=== PATIENT | female | born 1945 | race Hispanic/Latino ===

== ENCOUNTER 2017-06-29 17:46 | Emergency (ER) | payer OTHER | END 2017-06-29 19:34 | disposition home or self-care (01) | LOC: EDH 17:46 | DX: S50.12XA Contusion of left forearm, initial encounter (principal); S70.02XA Contusion of left hip, initial encounter; E11.9 Type 2 diabetes mellitus without complications; E78.5 Hyperlipidemia, unspecified; I10 Essential (primary) hypertension; Z86.73 Personal history of transient ischemic attack (TIA), and cerebral infarction without residual deficits; Z95.1 Presence of aortocoronary bypass graft; Z90.710 Acquired absence of both cervix and uterus; W07.XXXA Fall from chair, initial encounter; Y93.89 Activity, other specified; Y92.89 Other specified places as the place of occurrence of the external cause; Y99.8 Other external cause status | CPT/HCPCS: 99281 ==

== ENCOUNTER 2018-06-12 03:36 | Emergency (ER) | payer OTHER ==
[2018-06-12] MEDS ORDERED: LORAZEPAM 2 MG/ML 1 ML VIAL ONE (04:09)
[2018-06-12] MEDS ORDERED: HALOPERIDOL LACTATE 5 MG/ML VIAL ONE (04:15)
[2018-06-12 04:30] LABS: BASOPHILS % (AUTO) 0.4 % (0.0-5.0); EOSINOPHILS % (AUTO) 0.8 % (0.0-8.0); HEMATOCRIT 33.8 % (36-48); MEAN CORPUSCULAR HEMOGLOBIN 31.5 pg (27.0-33.0); MEAN CORPUSCULAR HGB CONC 35.3 g/dL (32.0-36.0); MEAN CORPUSCULAR VOLUME 89.1 fL (79-99); MONOCYTES % (AUTO) 6.3 % (3.0-13.0); NEUTROPHILS % (AUTO) 76.5 % (40.0-77.0); NUCLEATED RED BLOOD CELLS 0.1 % (0.0-0.19); PLATELET COUNT (AUTO) 186 K/uL (130-400); RED BLOOD CELL COUNT(AUTO) 3.79 MIL/uL (4.00-5.50); RED CELL DISTRIBUTION WIDTH 14.5 % (11.0-15.5); WHITE BLOOD COUNT (AUTO) 5.1 K/uL (4.8-10.8)
[2018-06-12 04:41] LABS: CREATININE 0.7 mg/dL (0.5-1.5); POTASSIUM 3.7 mmol/L (3.5-5.1)
[2018-06-12 04:45] LABS: ALBUMIN 3.5 g/dL (3.5-5.0); BILIRUBIN,TOTAL 0.5 mg/dL (0.2-1.0); TOTAL PROTEIN, SERUM 6.4 g/dL (6.0-8.3)
[2018-06-12 04:46] LABS: INR 0.95 (0.85-1.15); PARTIAL THROMBOPLASTIN TIME 27.3 SEC (26.3-35.5)
== END 2018-06-12 06:56 | disposition home or self-care (01) ==
LOC: EDH 03:36
DX: S00.93XA Contusion of unspecified part of head, initial encounter (principal); G20 Parkinson's disease; F02.81 Dementia in other diseases classified elsewhere, unspecified severity, with behavioral disturbance; I10 Essential (primary) hypertension; E78.5 Hyperlipidemia, unspecified; E11.9 Type 2 diabetes mellitus without complications; Z86.73 Personal history of transient ischemic attack (TIA), and cerebral infarction without residual deficits; Z95.1 Presence of aortocoronary bypass graft; W07.XXXA Fall from chair, initial encounter; Y93.89 Activity, other specified; Y92.89 Other specified places as the place of occurrence of the external cause; Y99.8 Other external cause status
CPT/HCPCS: 36415; 70450; 70486; 71045; 80053; 82550; 84484; 85025; 85610; 85730; 93005; 94640; 96372 ×2; 99285; J1630; J2060

== ENCOUNTER → 2018-07-11 | Outpatient (CLI) | payer OTHER | END | disposition home or self-care (01) | LOC: RAH 10:22 | PROVIDERS: ATTEND Internal Medicine | DX: N13.30 Unspecified hydronephrosis (principal) | CPT/HCPCS: 76700; 76856 ==

== ENCOUNTER → 2018-09-24 | Outpatient (CLI) | payer OTHER, MEDICARE ==
[~2018-09-24] MED LIST: IOHEXOL 350 MG/ML 100ML INFUS..BTL IV ONE
== END | disposition home or self-care (01) ==
LOC: OIH 10:26
PROVIDERS: ATTEND Internal Medicine
DX: N28.89 Other specified disorders of kidney and ureter (principal)
CPT/HCPCS: 74178; Q9967

== ENCOUNTER 2019-01-04 15:45 | Emergency (ER) | payer OTHER, MEDICARE | END 2019-01-04 18:50 | disposition home or self-care (01) | LOC: EDH 15:45 | DX: G20 Parkinson's disease (principal); E11.9 Type 2 diabetes mellitus without complications; E78.5 Hyperlipidemia, unspecified; I10 Essential (primary) hypertension; Z95.1 Presence of aortocoronary bypass graft; Z86.73 Personal history of transient ischemic attack (TIA), and cerebral infarction without residual deficits; W08.XXXA Fall from other furniture, initial encounter; Y93.89 Activity, other specified; Y92.89 Other specified places as the place of occurrence of the external cause; Y99.8 Other external cause status | CPT/HCPCS: 70450; 72125; 72170; 93005 ==

== ENCOUNTER 2019-08-08 11:07 | Inpatient (IN) | payer OTHER, MEDICARE ==
[~2019-08-08] VITALS: Ht 152.4 cm; Wt 51.2 kg
[~2019-08-08 11:07] MED LIST changes: +CARB-37 PO; +CEPH500C2 PO; +CLOP75TA32 PO; +ESCI5TAB10 PO; +FURO20TA4 PO; -IOHEXOL 350 MG/ML 100ML INFUS..BTL IV ONE; +LOSA50TA64 PO; +METF500S7 PO; +SIMV40TA59 PO
[2019-08-08 11:29] LABS: APPEARANCE,URINE Clear (CLEAR); BILIRUBIN,URINE Negative (NEGATIVE); COLOR,URINE Yellow (YELLOW); GLUCOSE, URINE (UA) Negative (NEGATIVE); KETONES,URINE Negative (NEGATIVE); LEUKOCYTE ESTERASE ,URINE Moderate (NEGATIVE); NITRATE,URINE Negative (NEGATIVE); OCCULT BLOOD,URINE Large (NEGATIVE); PROTEIN,URINE Negative (NEGATIVE); UROBILINOGEN,URINE 0.2 mg/dL (0.2-1.0)
[2019-08-08 12:07] LABS: BASOPHILS % (AUTO) 0.1 % (0.0-5.0); EOSINOPHILS % (AUTO) 0.1 % (0.0-8.0); LYMPHOCYTES % (AUTO) 5.7 % (21.0-51.0); MEAN CORPUSCULAR HGB CONC 28.7 g/dL (32.0-36.0); MEAN CORPUSCULAR VOLUME 97.5 fL (79-99); MONOCYTES % (AUTO) 2.7 % (3.0-13.0); NEUTROPHILS % (AUTO) 90.6 % (40.0-77.0); PLATELET COUNT (AUTO) 137 K/uL (130-400); RED BLOOD CELL COUNT(AUTO) 2.36 MIL/uL (4.00-5.50); RED CELL DISTRIBUTION WIDTH 16.5 % (11.0-15.5); WHITE BLOOD COUNT (AUTO) 14.2 K/uL (4.8-10.8)
[2019-08-08 12:33] LABS: INR 1.11 (0.85-1.15); PARTIAL THROMBOPLASTIN TIME 29.6 SEC (26.3-35.5); PROTHROMBIN TIME 11.9 SEC (9.6-11.6)
[2019-08-08 12:35] LABS: BACTERIA,URINE Few /HPF (None Seen); WBC,URINE 0-1 /HPF (0-1)
[2019-08-08 12:51] LABS: CREATININE 1.1 mg/dL (0.5-1.5); POTASSIUM 3.2 mmol/L (3.5-5.1)
[2019-08-08] MEDS ORDERED: SODIUM CHLORIDE 0.9% 500ML 500 ML IV ONE (15:38)
[2019-08-08 16:20] VITALS: BP 113/58
[2019-08-08 20:16] VITALS: BP 110/83
[2019-08-08] MEDS ORDERED: ZINC TABLET PO (20:24)
[2019-08-08] MEDS ORDERED: BISA10SU61 RC (20:24)
[2019-08-08] MEDS ORDERED: NUTR1PAC14 PO (20:24)
[2019-08-08] MEDS ORDERED: SANTO TP (20:24)
[2019-08-08] MEDS ORDERED: FERR325T22 PO (20:24)
[2019-08-08] MEDS ORDERED: APIX5TAB PO (20:24)
[2019-08-08] MEDS ORDERED: TRAM50TA4 PO (20:24)
[2019-08-08] MEDS ORDERED: ACET-3194 PO (20:24)
[2019-08-08] MEDS ORDERED: PIPE3.3712 IV (20:24)
[2019-08-08] MEDS ORDERED: INSLAN SQ (20:24)
[2019-08-08] MEDS ORDERED: MULT-1203 PO (20:24)
[2019-08-08] MEDS ORDERED: DOCU-116 PO (20:24)
[2019-08-08] MEDS ORDERED: FAMO-136 PO (20:24)
[2019-08-08] MEDS ORDERED: ASCO500T20 PO (20:24)
[2019-08-09 00:16] VITALS: BP 117/59
[2019-08-09 04:16] VITALS: BP 95/65
[2019-08-09 06:42] LABS: HEMATOCRIT 32.5 % (36-48); MEAN CORPUSCULAR HEMOGLOBIN 28.8 pg (27.0-33.0); MEAN CORPUSCULAR HGB CONC 31.1 g/dL (32.0-36.0); MEAN CORPUSCULAR VOLUME 92.6 fL (79-99); PLATELET COUNT (AUTO) 131 K/uL (130-400); RED BLOOD CELL COUNT(AUTO) 3.51 MIL/uL (4.00-5.50); RED CELL DISTRIBUTION WIDTH 17.4 % (11.0-15.5); WHITE BLOOD COUNT (AUTO) 12.6 K/uL (4.8-10.8)
[2019-08-09 08:00] VITALS: BP 92/54
[2019-08-09 12:00] VITALS: BP 98/61
[2019-08-09 16:00] VITALS: BP 125/58
--- NOTE | 2019-08-09 17:17 | NUR ---
INITIAL: Pt is nonverbal. Call placed to EC on merritt Asencio(dtr). Per Elif pt was admitted from [facility]. She mentions that pt had been @ [facility] since Jun following a pressure ulcer debridement. She mentions that prior to Jun 2019 pt was living @ home and was ambulating @ CLAIM[employer] DIRECT[employer] and required assistance w ADLs. Per Elif she is not ready to make a decision regarding DCP. She mentions that she would like cardiology to be consulted. She mentions that nurse @ SNF mentioned pt had discoloration to LE dt cardiovascular issues. Elif states that she does not want pt to be discharged until she is seen and cleared by cardiology. She also mentions that Dr. Peterson had previously mentioned Hospice to them. Elif states "I don't agree with that, my mom is not dying." Informed Elif that Hospice is not only for pts that are actively dying but for pt's that have a terminal illness that may be advanced such as Parkinon's, ESRD and etc. Informed her regarding what support Hospice can offer. Informed Elif that CM will inform Md regarding her concerns. Call placed to Dr. Peterson and informed him regarding Dtrs concerns. CM to continue to follow and wait for Md recommendations. Addendum: 08/09/19 at 1726 by MATEUS FOX Amended: Links added.
[2019-08-09] MEDS ORDERED: ZOSYN 3.375GM +NS 50ML IV SCH (17:45)
[2019-08-09] MEDS ORDERED: BISACODYL 10 MG SUPP.RECT RC PRN (17:45)
[2019-08-09] MEDS ORDERED: ACETAMINOPHEN EXTENDED RELEASE 650 MG TABLET PO SCH (17:45)
[2019-08-09] MEDS ORDERED: ZOSYN 3.375GM+NS 50ML 50 ML IV SCH (18:00)
[2019-08-09 20:12] VITALS: BP 124/84
[2019-08-09] MEDS: LEVODOPA PO SCH (21:00)
[2019-08-09] MEDS: CARBIDOPA PO SCH (21:00)
[2019-08-09] MEDS: FERROUS SULFATE 325 MG TABLET.DR PO SCH (22:08)
[2019-08-09] MEDS: FUROSEMIDE 20 MG TABLET PO SCH (22:08)
[2019-08-09] MEDS: INSULIN GLARGINE 100 UNITS/ML 10 ML VIAL SQ SCH (22:32)
[2019-08-10] VITALS (7 sets, daily range): BP systolic 94–127; BP diastolic 51–91
[2019-08-10] MEDS: ZOSYN 3.375GM+NS 50ML 50 ML IV SCH ×3 (05:03→20:50)
[2019-08-10] MEDS: ZINC 220 MG PO SCH (09:00)
[2019-08-10] MEDS: HOME MEDICATION 1 EACH PO SCH ×2 (09:00→11:03)
[2019-08-10] MEDS: FERROUS SULFATE 325 MG TABLET.DR PO SCH ×2 (10:46→20:51)
[2019-08-10] MEDS: ASCORBIC ACID 500 MG TAB PO SCH (10:46)
[2019-08-10] MEDS: FUROSEMIDE 20 MG TABLET PO SCH ×2 (10:46→20:51)
[2019-08-10] MEDS: DOCUSATE SODIUM 100 MG CAP PO SCH (10:46)
[2019-08-10] MEDS: FAMOTIDINE 20MG TAB 20 MG TAB PO SCH (10:47)
[2019-08-10] MEDS: MULTIVITAMIN TABLET PO SCH (10:55)
--- NOTE | 2019-08-10 11:55 | NUR ---
RD NOTIFICATION RD consulted due to pt receives pureed diet at retirement. Current diet: clear liquids/ nectar thick. PO intake 50-75%. Labs and meds reviewed. Sacrum ulcer noted. Left renal mass, suspected CA. Daughter refusing hospice at this time. RD recommends to consult SEAMING INSPECTOR for diet recommendations, JULIAN Martinez notified Continue Vitamin C for wound healing Monitor po intake and tolerance RD will continue to monitor and follow up, thank you. Addendum: 08/10/19 at [address] Amended: Links added.
--- NOTE | 2019-08-10 14:21 | NUR ---
DYSPHAGIA EVAL COMPLETED. TOLERATING BASELINE DIET. RECOMMEND PUREED, NECTAR-THICK LIQUIDS; PILLS CRUSHED WITH APPLESAUCE. Addendum: 08/10/19 at 1423 by CESAR BOO, [facility] Amended: Links added.
[2019-08-10] MEDS ORDERED: POTASSIUM CHLORIDE 20MEQ/100ML 100 ML IV PRN (15:15)
[2019-08-10] MEDS ORDERED: POTASSIUM CHLORIDE 10% ELIXIR 20 MEQ/15 ML UDCUP PO PRN (15:15)
[2019-08-10] MEDS ORDERED: LIDOCAINE HCL-MPF 1% 2ML VIAL IV PRN (15:15)
[2019-08-10] MEDS ORDERED: POTASSIUM CHLORIDE 20 MEQ ERTAB PO PRN (15:15)
--- NOTE | 2019-08-10 15:53 | NUR ---
[facility] CONSULT PATIENT ASSESSED REQUESTED: PATIENT PRESENTS WITH STAGE IV PRESSURE ULCER TO SACRUM; [facility] RECOMMENDATIONS SUBMITTED. Addendum: 08/10/19 at 1554 by LYRIC CARTER LVN LVN W Amended: Links added.
--- NOTE | 2019-08-10 19:45 | NUR ---
Patient resting in bed at this time. Vitals stable. Afebrile. Tolerating IV ABT well. No adverse reactions noted. Resp even and unlabored. No Sob noted. On room air. Total care rendered. BM noted. Dressing changed as per MD orders. Repositioned for comfort. Oral care given. Call light within reach. Will continue to be observed. Addendum: 08/11/19 at 0552 by ANDRY SIMS RN RN Amended: Links added.
[2019-08-10] MEDS: HONEY 1 APPL/ML TUBE TP SCH (20:50)
[2019-08-10] MEDS: LEVODOPA PO SCH (20:51)
[2019-08-10] MEDS: CARBIDOPA PO SCH (20:51)
[2019-08-10] MEDS: INSULIN GLARGINE 100 UNITS/ML 10 ML VIAL SQ SCH (20:52)
[2019-08-11 04:00] VITALS: BP 110/65
[2019-08-11] MEDS: ZOSYN 3.375GM+NS 50ML 50 ML IV SCH ×3 (05:06→21:18)
[2019-08-11 08:05] VITALS: BP 124/34
[2019-08-11] MEDS: FUROSEMIDE 20 MG TABLET PO SCH ×2 (08:20→21:25)
[2019-08-11] MEDS: MULTIVITAMIN TABLET PO SCH (08:20)
[2019-08-11] MEDS: FAMOTIDINE 20MG TAB 20 MG TAB PO SCH (08:20)
[2019-08-11] MEDS: DOCUSATE SODIUM 100 MG CAP PO SCH (08:20)
[2019-08-11] MEDS: ASCORBIC ACID 500 MG TAB PO SCH (08:20)
[2019-08-11] MEDS: FERROUS SULFATE 325 MG TABLET.DR PO SCH ×2 (08:20→21:18)
[2019-08-11] MEDS: HOME MEDICATION 1 EACH PO SCH ×2 (08:21→12:00)
[2019-08-11] MEDS: ZINC 220 MG PO SCH (08:21)
[2019-08-11 11:18] VITALS: BP 107/73
[2019-08-11] MEDS: HONEY 1 APPL/ML TUBE TP SCH (15:06)
--- NOTE | 2019-08-11 15:45 | NUR ---
CM NOTE/DAUGHTER CALLED REGARDING DC PLAN SPOKE WITH MYRTLE JOY ON PHONE PER HUMA IRAHETA, OTHER DAUGHTER IS IN CHARGE OF PATIENT MEDICALLY. PER MYRTLE, WISHES PATIENT TO RETURN HOME. HUMA CALLED NEXT. PER HUMA, UNDERSTANDING THAT PATIENT MIGHT HAVE TO RETURN BACK TO SNF (HNR) BUT ULTIMATELY WOULD LIKE PATIENT TO BE DISCHARGED HOME. PER DAUGHTER, MAY BE ABLE TO OBTAIN HOSPITAL BED FROM [facility] OR [facility]. DAUGHTER CONCERNED THAT PATIENT LOST WEIGHT, WENT FROM REGULAR DIET TO PUREED AND WOUND WORSENED IN THE LAST WEEK AT SNF. PER DR. BONNER NOTES, PALLATIVE MIGHT BE OPTION TO PATIENT. PER DAUGHTER, OPEN TO PALLATIVE CARE BUT NOT HOSPICE UNLESS PATIENT REALLY DYING. DAUGHTER STATES SHE IS PROVIDER AND HAS PRIVATE PAY PROVIDERS AT SNF AT NIGHT TO MONITOR PATIENT. CALLED JARRELL WHITE FOR ASSISTANCE WITH CASE. DAUGHTER CONCERNED WITH COVID-19 IF PATIENT RETURN TO SKILLED NURSING WELL OTHER CONCERNS MENTIONED ABOVE. DAUGHTER VERBALIZED UNDERSTANDING THAT PATIENT CANNOT STAY AT HOSPITAL AND WILL BE DISCHARGED TO SNF IF MEDICALLY CLEARED. DR. HUTCHISON CALLED, DISCUSSED CASE WITH MD. PER MD, WILL CALL HUMA AT [phone] AND DISCUSS DC PLANNING.
[2019-08-11 16:01] VITALS: BP 106/70
--- NOTE | 2019-08-11 17:07 | NUR ---
DCP SW spoke to patient's daughter, Elif Freeman, regarding discharge plans. Daughter stated that she wanted patient home rather than back at [facility]. Daughter stated that patient lived with her prior to going to the custodial. Patient had no home health but had PHC with [facility] 45 hours a week including respite hours. DME: wheelchair, 4 wheel walker, shower chair and BSC. PCP is Dr. Peterson. Pharmacy is [facility] in [place]. Daughter stated that she had just spoken to Dr. Peterson and wanted palliative care with [facility]. Daughter stated that MD had explained that staff would refer to care as palliative and not hospice. ALIYA/Choice completed and placed in chart. SW informed Leyla TELLEZ of above information. Pending MD orders. SW will continue to follow up with family.
[2019-08-11] MEDS ORDERED: GLUCAGON 1MG KIT 1 MG ML IM PRN (17:15)
[2019-08-11] MEDS ORDERED: DEXTROSE 50%-WATER 50 ML DISP.SYRIN IV PRN (17:15)
[2019-08-11 20:00] VITALS: BP 121/82
[2019-08-11] MEDS: CARBIDOPA PO SCH (21:00)
[2019-08-11] MEDS: LEVODOPA PO SCH (21:00)
[2019-08-11] MEDS: INSULIN GLARGINE 100 UNITS/ML 10 ML VIAL SQ SCH (21:00)
[2019-08-11 23:54] VITALS: BP 135/62
[2019-08-12 04:00] VITALS: BP 96/57
[2019-08-12] MEDS: ZOSYN 3.375GM+NS 50ML 50 ML IV SCH ×3 (04:51→22:11)
[2019-08-12] MEDS: ASCORBIC ACID 500 MG TAB PO SCH (08:29)
[2019-08-12] MEDS: DOCUSATE SODIUM 100 MG CAP PO SCH (08:29)
[2019-08-12] MEDS: MULTIVITAMIN TABLET PO SCH (08:30)
[2019-08-12] MEDS: FUROSEMIDE 20 MG TABLET PO SCH ×2 (08:30→22:11)
[2019-08-12] MEDS: ZINC 220 MG PO SCH (08:30)
[2019-08-12] MEDS: HOME MEDICATION 1 EACH PO SCH ×2 (08:30→11:29)
[2019-08-12] MEDS: FERROUS SULFATE 325 MG TABLET.DR PO SCH ×2 (08:30→22:10)
[2019-08-12] MEDS: FAMOTIDINE 20MG TAB 20 MG TAB PO SCH (08:30)
[2019-08-12 08:54] VITALS: BP 121/94
--- NOTE | 2019-08-12 11:28 | NUR ---
PALLIATIVE VS HOSPICE [place] ANGÉLICA contacted by CM regarding Palliative consult. CM updated on situation, Angélica reviewed chart notes. SW called daughter Angella [phone], whom lives with pt and is pt's provider 32hrs a week. Daughter stated that pt was at [facility] since Jun and family feels pt has really declined since Virus restrictions have been put in place and family has not been able to visit and be with pt. Daughter educated on Palliative vs Hospice. Daughter states that [facility] told her that they provide Palliative care in the home and it is the same as hospice but pt is still seeking treatment. Angélica called Meir [phone] and informed him of what daughter is reporting. Meir states he has spoken at length to daughter several times. Meir reports, daughter has issues with using the word "hospice", and does not want it to get out on social media that pt is on hospice and "dying". Meir says he told daughter that she can tell family pt is on palliative care, but daughter is aware that pt is receiving hospice. Meir states he feels daughter is either not understanding or not willing to accept that pt is hospice appropriate. Meir states that pt would be on hospice, and if Dr Peterson is willing to remain attending, he can. ANGÉLICA called daughter back and informed her of my conversation with Meir. Again explained to daughter what Palliative Care is in hospital setting. Explained hospice services, encouraged her to call her PHC agency and discuss having pt evaluated for additional hours since hospice spiritual care coordinator can not duplicate services PHC does in home. Daughter stated that she needs help, she does not feel she is qualified to do provided level of care pt needs. ANGÉLICA explained that if she feel like this, then NH is best placement for pt. "but they won't let me see her". I again explained then you have option of taking her home and she providing care. "But I need help and the equipment" daughter said. I explained that hospice is only way that pt will receive the equipment supplies and medication in the home. Explained that care would fall on provider and family to provide to pt, nurses are not in the home 03/12, and hospice patient care secretary can not do what she is being paid to do as her mother's provider. Peng concerned that pt will get another UTI, explained to pt that antibiotics can be given if needed, but not by IV, it would have to be orally. Daughter became emotional, Sw provided emotional support. Daughter given 3 options, back to NH and continue to treat pt aggressively, [facility] with hospice, or home with hospice. Daughter to think about it and I will recontact her after lunch. CM made aware of above
--- NOTE | 2019-08-12 13:30 | NUR ---
HOME WITH [facility] TOMORROW AM MELI recd call from Meir at [facility]. daughter contacted him and is agreeing to hospice. Daughter wants to meet tomorrow at 1. Sw to contact CM and see if this is ok with Dr Peterson. Meli spoke to CM. CM called Dr Peterson who states pt can dc in am tomorrow Meli called Meir back and informed of am dc. Meir to contact Dr Peterson to see if he will remain attending with hospice. Meli to fax pt info to [facility] office.
--- NOTE | 2019-08-12 14:21 | NUR ---
Meli spoke to daughter Angella and verified of her decision for hospice. DAughter gave verbal consent for referral to [facility]. Meir to meet with daughter today and complete consents.
--- NOTE | 2019-08-12 15:03 | NUR ---
[facility] ACCEPTED Sw recd call from max at [facility]. Daughter signed consents. OOHDNR to be faxed to ri at [phone] for transport. DME to be ordered at 7pm to deliver this evening.
[2019-08-12] MEDS: HONEY 1 APPL/ML TUBE TP SCH (15:29)
[2019-08-12 16:00] VITALS: BP 132/91
--- NOTE | 2019-08-12 16:17 | NUR ---
OOHDNR Meli recd OOHDNR from [facility]. OOHDNR placed on chart. CM aware
--- NOTE | 2019-08-12 18:26 | NUR ---
PRIMARY MD DR. HUTCHISON HAS NOT COME IN TODAY TO SEE THE PATIENT SO HE HAS BEEN NOTIFIED VIA TEXT ASKING IF HE WILL BE COMING IN TONIGHT. PENDING RESPONSE.
[2019-08-12 20:08] VITALS: BP 121/58
[2019-08-12] MEDS: CARBIDOPA PO SCH (20:26)
[2019-08-12] MEDS: LEVODOPA PO SCH (20:26)
--- NOTE | 2019-08-12 21:53 | NUR ---
NOTE DR. HUTCHISON HERE TO SEE PATIENT. INFORMED OF PATIENTBLOOD BLOOD SUGAR READINGS IN THE 60'S, PIKE OUTPUT OF 250ML THIS AFTERNOON, POOR APPETITE, AND MEDICATIONS. RECEIVED ORDERS FOR NO LABS FOR TOMORROW MORNING, HOLD THE LANTUS INSULIN AND PATIENT CAN BE DISCHARGED TOMORROW WHEN READY AND ACCEPTED BY HOSPICE.
[2019-08-13 00:12] VITALS: BP 133/74
[2019-08-13 04:08] VITALS: BP 110/82
[2019-08-13] MEDS: ZOSYN 3.375GM+NS 50ML 50 ML IV SCH ×2 (05:05→13:00)
[2019-08-13 08:45] VITALS: BP 93/80
--- NOTE | 2019-08-13 08:51 | NUR ---
DCP: HOME WITH [facility] [phone] Sw spoke to Meir at [facility]. DME was delivered last night and they are ready for pt. Nurse to call report to hospice nurse Fatemeh [phone]. [facility] office is [phone]. ANGÉLICA called daughter Angella and verified DME in home. Peng states she is ready and wants to be informed when pt leave the building and is on her way home CM informed. of above
[2019-08-13] MEDS: HOME MEDICATION 1 EACH PO SCH ×2 (09:00→12:00)
[2019-08-13] MEDS: ZINC 220 MG PO SCH (09:00)
[2019-08-13] MEDS: FERROUS SULFATE 325 MG TABLET.DR PO SCH (09:23)
[2019-08-13] MEDS: MULTIVITAMIN TABLET PO SCH (09:23)
[2019-08-13] MEDS: DOCUSATE SODIUM 100 MG CAP PO SCH (09:23)
[2019-08-13] MEDS: ASCORBIC ACID 500 MG TAB PO SCH (09:23)
[2019-08-13] MEDS: FUROSEMIDE 20 MG TABLET PO SCH (09:23)
[2019-08-13] MEDS: FAMOTIDINE 20MG TAB 20 MG TAB PO SCH (09:23)
[2019-08-13] MEDS: HONEY 1 APPL/ML TUBE TP SCH (09:24)
[2019-08-13 11:24] VITALS: BP 97/86
--- NOTE | 2019-08-13 15:50 | NUR ---
Order in chart to DC PICC line prior to discharge. Explained procedure to pt, placed in supine position with left arm extended. Dressing and StatLock removed, catheter removed, no resistance. Tip appears smooth and cut, not jagged or torn. Measured 15 cm. Noted tubing was labelled "MIDLINE". Pressure held for 5 minutes with sterile 4x4's and gloved fingers and hemostasis was achieved. Dressed with sterile 4x4 and opsite. No residual bleeding noted. Placed back in right side lying position. Call light within reach.
--- NOTE | 2019-08-13 16:00 | NUR ---
RD FOLLOW UP Pt pending Hospice status. Tolerating Heart healthy Puree diet order, no report of GI distress, PO intake at 75%. RD to continue to monitor. Please notify as additional nutrition concerns arise. Thank you. Addendum: 08/13/19 at [address] Amended: Links added.
--- NOTE | 2019-08-13 16:30 | NUR ---
DISCHARGE PATIENT GIVEN DISCHARGE INSTRUCTIONS VIA TEACH BACK. MID LINE TO MANNY DISCONTINUED BY FAN ORDONEZ RN. PATIENT DISCHARGED HOME WITH [facility]. REPORT GIVEN TO NIC MELCHOR/JULIAN RICHARDS. ORDER TO DISCONTINUE IV, BLOOD THINNERS AND ANTIBIOTICS. PATIENT'S DAUGHTER AWAITING FOR EMS TO TRANSPORT PATIENT HOME.
--- NOTE | 2019-08-13 18:50 | NUR ---
EMS PRESENT TO TRANSPORT PATIENT TO RESIDENCE. DAUGHTER PRESENT AT HOME TO RECEIVE PATIENT.
== END 2019-08-13 16:42 | disposition hospice, home (50) | DRG 812 ==
LOC: EDH 11:07 → EDHIP 15:07 → OBSVTOIN 15:07 → 4AH 16:39
PROVIDERS: ADMIT Internal Medicine; ATTEND Internal Medicine
PROC: 30233N1 Transfusion of Nonautologous Red Blood Cells into Peripheral Vein, Percutaneous Approach (ICD-10-PCS; principal; 2019-08-08)
DX: D62 Acute posthemorrhagic anemia (principal); C64.2 Malignant neoplasm of left kidney, except renal pelvis; I13.0 Hypertensive heart and chronic kidney disease with heart failure and stage 1 through stage 4 chronic kidney disease, or unspecified chronic kidney disease; E11.40 Type 2 diabetes mellitus with diabetic neuropathy, unspecified; N18.2 Chronic kidney disease, stage 2 (mild); G20 Parkinson's disease; F02.80 Dementia in other diseases classified elsewhere, unspecified severity, without behavioral disturbance, psychotic disturbance, mood disturbance, and anxiety; L89.159 Pressure ulcer of sacral region, unspecified stage; Z86.718 Personal history of other venous thrombosis and embolism; I25.10 Atherosclerotic heart disease of native coronary artery without angina pectoris; I35.9 Nonrheumatic aortic valve disorder, unspecified; I50.9 Heart failure, unspecified; E11.22 Type 2 diabetes mellitus with diabetic chronic kidney disease; E11.649 Type 2 diabetes mellitus with hypoglycemia without coma; E11.65 Type 2 diabetes mellitus with hyperglycemia; Z51.5 Encounter for palliative care; R62.7 Adult failure to thrive; Z79.4 Long term (current) use of insulin; Z95.1 Presence of aortocoronary bypass graft; Z95.2 Presence of prosthetic heart valve; Z68.22 Body mass index [BMI] 22.0-22.9, adult
CPT/HCPCS: 36415; 36430; 80048; 81001; 82947; 82948; 84132; 85025; 85027; 85610; 85730; 86850; 86900; 86901; 86922; 87088; 92610; 99291; G0378; J2543; J3480; J3490; J7040; J7070; P9016